=== PATIENT | male | born 1965 | race African-American/Black ===

== ENCOUNTER 2016-12-18 23:58 | Emergency (ER) | payer MEDICARE, OTHER ==
--- NOTE | ~2016-12-18 | EKG ---
PATIENT: BA CORTEZ UNIT #: [id number] Ventricular Rate: 68 BPM Atrial Rate: 68 BPM P-R Interval: 140 ms QRS Duration: 132 ms Q-T Interval: 444 ms QTC Calculation(Bezet): 472 ms P [place]: 54 degrees Calculated R [place]: -44 degrees Calculated T [place]: -45 degrees Diagnosis Line: Normal sinus rhythm with sinus arrhythmia Diagnosis Line: Left axis deviation Diagnosis Line: Incomplete left bundle branch block Diagnosis Line: T wave abnormality, consider anterolateral Diagnosis Line: ischemia Diagnosis Line: Abnormal ECG Diagnosis Line: When compared with ECG of 11-SEP-2014 13:09, Diagnosis Line: No significant change was found Diagnosis Line: Confirmed by TRISH BENAVIDES MD ([id number]) on 12/19/2016 Diagnosis Line: 4:56:48 AM INTERPRETING MD: KENNEDY LEMUS
--- NOTE | ~2016-12-18 | CT71 ---
[facility] [place] [facility] TEXT RESULTS PATIENT: BA CORTEZ LOCATION: [facility] : [birth year] UNIT #: [id number] AGE: [address]: Murphy Woods MD SEX: M ORDER DR: [id number] [address] [address] [id number] E MR#: [id number] Acc #: [id number] NAME: BA CORTEZ. : 1965 SEX: M STUDY DATE/TIME: 12/19/2016 0:15 UNIT: [place] ROOM: STUDY DESCRIPTION: CT Head Wo Contrast Attending Physician: Murphy Woosd Ordering Physician: Chris Zheng M.D. Primary Care Physician: Fer Garcia M.D. MEDICAL IMAGING REPORT This report is preliminary unless electronic signature is present EXAM CT head, noncontrast, 12/19/2016 HISTORY 51-year-old male in the ED complaining of severe headache beginning at about [address] examination of the head without IV contrast. FINDINGS No acute intracranial abnormality is demonstrated. Mild patchy, diffuse low-attenuation white matter changes, nonspecific but likely related to chronic microvascular disease. No evidence of intracranial hemorrhage, mass, mass effect, cerebral edema, hydrocephalus or additional abnormality. IMPRESSION 1. No acute intracranial abnormality. 2. Mild diffuse chronic changes as noted above. Dictated by... Rodney Roblero M.D. THIS IS AN ELECTRONICALLY VERIFIED REPORT Rodney Roblero M.D. at 12/19/2016 9:43 PM GUEVARA/timothy TD: 12/19/2016 12:05 JOB #: [id number] [facility] A Service of [facility] RADIOLOGY TEXT RESULTS PATIENT: BA CORTEZ LOCATION: [facility] : 69 UNIT #: [id number] AGE: [address]: Murphy Woods MD SEX: M ORDER DR: MEDICAL IMAGING REPORT Page 1 of 1 COPY
--- NOTE | ~2016-12-18 | CR72 ---
[facility] A Service of [facility] & [facility] RADIOLOGY TEXT RESULTS PATIENT: BA CORTEZ LOCATION: [facility] : 69 UNIT #: [id number] AGE: [address]: Murphy Woods MD SEX: M ORDER DR: [id number] [facility] [address] [place], [place] [address] [id number] E MR#: [id number] Acc #: [id number] NAME: BA CORTEZ. : 1965 SEX: M STUDY DATE/TIME: 12/19/2016 4:23 UNIT: [facility] ROOM: STUDY DESCRIPTION: CR Chest Single View Portable Attending Physician: Rogelio Woods M.D. Ordering Physician: Rogelio Woods M.D. Primary Care Physician: Fer Garcia M.D. MEDICAL IMAGING REPORT This report is preliminary unless electronic signature is present EXAM AP portable chest, 12/19/2016 HISTORY 51-year-old male in the ED complaining of new onset chest pain tonight about 4 or 5 hours prior to arrival. Headache, blurred vision. FINDINGS Heart size and pulmonary vascularity are normal. The lungs are expanded and clear. No visible pulmonary infiltrate or pleural effusion. No change since 09/11/2014. IMPRESSION Negative chest. Dictated by... Rodney Roblero M.D. THIS IS AN ELECTRONICALLY VERIFIED REPORT Rodney Roblero M.D. at 12/19/2016 9:43 PM Herminio TD: 12/19/2016 12:59 JOB #: [id number] MEDICAL IMAGING REPORT Page 1 of 1 COPY
[~2016-12-18 23:58] MED LIST: ALDACTAZIDE PO; ASPIRIN81 M1 PO; ASPIRIN81 MG PO; BENICAR20 MG PO; BYSTOLIC5 MG PO; GLIPIZIDE10 MG PO; HYDROCHLOROTHIA25 MG PO; IBUPROFEN800 MG PO; K-DUR20 ME1 PO; LIPITOR40 MG PO; LISINOPRIL PO; LORTAB 101 TAB 10/5 PO; METFORMIN HCL500 M1 PO; NEXIUM PO; NORVASC10 MG PO; ONGLYZA5 MG PO; PLAVIX PO; POTASSIUM CHLO10 MEQ PO; WELLBUTRIN SR150 MG PO; XANAX1 MG PO; ZESTRIL40 MG PO
[2016-12-19 01:20] LABS: POC - CKMB 1.4 ng/mL (0.0-7.9); POC - TROPONIN <0.05 ng/mL (<=0.05)
[2016-12-19 01:29] LABS: BASOPHIL% 0.2 % (0-2.5); EOSINOPHIL# 0.2 X10e3 (0-0.7); EOSINOPHIL% 1.8 % (0.0-7.0); HEMATOCRIT 40.4 % (38.0-50.0); LYMPHOCYTE# 3.2 X10e3 (1.0-3.5); LYMPHOCYTE% 27.6 % (17.0-45.0); MEAN CELL VOLUME 94.3 FL (83-96); MEAN CORPUSCULAR HEMOGLOBIN 30.4 PG (28-34); MEAN CORPUSCULAR HGB CONC 32.2 g/dL (30-36); MEAN PLATELET VOLUME 8.7 FL (6.5-11.5); MONOCYTE% 8.7 % (3.0-12.0); NEUTROPHIL% 61.7 % (40-75); PLATELET COUNT 307 X10e3 (140-420); RED BLOOD COUNT 4.28 X10e (3.90-5.60); RED CELL DISTRIBUTION WIDTH 14.2 % (11.0-15.5); WHITE BLOOD COUNT 11.4 X10e3 (4.0-10.5)
[2016-12-19 01:31] LABS: DIFF IND NO
[2016-12-19 02:46] LABS: POC - CKMB 1.1 ng/mL (0.0-7.9); POC - TROPONIN <0.05 ng/mL (<=0.05)
[2016-12-19 04:20] LABS: BLOOD UREA NITROGEN 14 mg/dL (9-23); CALCIUM SERUM 8.7 mg/dL (8.4-10.2); CARBON DIOXIDE 32 mmol/L (22-31); CHLORIDE 97 mmol/L (100-111); CREATININE SERUM 0.8 mg/dL (0.6-1.4); GLOM FILT RATE Estimated ABOVE60 mL/min (>60); GLUCOSE FASTING 259 mg/dL (70-110); POTASSIUM 3.4 mmol/L (3.5-5.1); SODIUM 137 mmol/L (135-145)
== END 2016-12-19 04:38 | disposition home or self-care (01) ==
LOC: CED 23:58
PROVIDERS: Emergency Medicine
DX: R51 Headache (principal); R07.89 Other chest pain; I10 Essential (primary) hypertension; Z90.49 Acquired absence of other specified parts of digestive tract
CPT/HCPCS: 36415; 70450; 71010; 80048; 82553; 84484; 85025; 93005; 99284

== ENCOUNTER 2017-02-27 11:41 | Observation (INO) | payer MEDICARE, OTHER ==
--- NOTE | ~2017-02-27 | ST ---
Unit #: [id number] #: [id number] Patient: BA CORTEZ [id number] [address] [address] [id number] I MR#: [id number] NAME: BA CORTEZ. : 1965 SEX: M STUDY DATE/TIME: UNIT: [facility] ROOM: 566 STUDY DESCRIPTION: Lexiscan stress test Attending Physician: Luke Ferguson M.D. Primary Care Physician: Fer Garcia M.D. CARDIOLOGY REPORT PROCEDURE PERFORMED Lexiscan Cardiolite stress test. NOTE: Had to change to Lexiscan due to the patient's blood pressure being elevated at baseline at 170/110 mmHg. REPORT Baseline EKG - Normal sinus rhythm with ventricular rate 68 beats per minute, left bundle branch block, poor R wave progression, T wave inversion in inferolateral leads. Lexiscan is a 4-minute test with Lexiscan being injected within the first minute, followed by Cardiolite. FINDINGS 1. EKG during the test was equivocal to baseline with occasional premature ventricular complexes. 2. The patient had no complaints of chest pain, palpitations or dizziness. Had increased shortness of breath and fatigue, which resolved in recovery phase. 3. Maximum heart rate response was 91 beats per minute with a maximum blood pressure response of 180/116 mmHg. 4. It was noted at the end of the recovery phase, the patient's blood pressure was 170/100 mmHg. 5. Cardiolite was injected after Lexiscan within the first minute of the test. Radionuclide tests pending. Please correlate with nuclear images. Dictated by... Kaylyn Zarate A.P.R.N. for Brenda Alexandra/db TD: 02/28/2017 13:14 JOB #: [id number] Unit #: [id number] #: [id number] Patient: BA CORTEZ CARDIOLOGY REPORT Page 1 of 1 X Kaylyn Zarate APRN CARDIOLOGY REPORT
--- NOTE | ~2017-02-27 | BMI ---
[facility] Nutrition Therapy DATE: 02/28/17 Patient: BA CORTEZ Physician: MAGDALENA Address: [address] [place] [address] Room/Bed: [address] [place] [address], Zip: [place] [address] Admit Date: 02/27/17 Date of : [birth year] Height: 5 11 Weight: 365 165.6 HIGH BMI NOTE: DX: 51 Y.O. MALE ADMITTED FOR LEFT ARM TINGLING AND CHEST PAIN ANTHROPOMETRICS: 5'11", WT: 365# (166 KG), BMI: 50.9 DIET: NPO RECOMMENDATIONS: 1. ONCE MEDICALLY FEASIBLE, ADVANCE DIET INDICATED TO CC+HH TO PROMOTE GRADUAL WEIGHT LOSS TOWARDS HEALTHY BMI (19.0-25.0) OR +/-10%IBW RD WILL F/U PER PROTOCOL Respectfully, RON DALEY MS, RD, LD [employer] and Nutrition[facility] cc: client file
--- NOTE | ~2017-02-27 | EKG ---
PATIENT: BA CORTEZ UNIT #: [id number] Ventricular Rate: 66 BPM Atrial Rate: 66 BPM P-R Interval: 144 ms QRS Duration: 132 ms Q-T Interval: 448 ms QTC Calculation(Bezet): 469 ms P [place]: 61 degrees Calculated R [place]: -36 degrees Calculated T [place]: -112 degrees Diagnosis Line: Normal sinus rhythm Diagnosis Line: Left axis deviation Diagnosis Line: Left bundle branch block Diagnosis Line: Abnormal ECG Diagnosis Line: When compared with ECG of 28-FEB-2017 05:44, Diagnosis Line: (unconfirmed) Diagnosis Line: No significant change was found Diagnosis Line: Confirmed by DL SARAH MD ([id number]) on Diagnosis Line: 03/03/2017 9:50:23 AM INTERPRETING : BERNARDO
--- NOTE | ~2017-02-27 | TH ---
Unit #: [id number] #: [id number] Patient: BA CORTEZ [id number] [address] [address] [id number] I MR#: [id number] NAME: BA CORTEZ. : 1965 SEX: M STUDY DATE/TIME: 03/01/2017 UNIT: [facility] ROOM: 566 STUDY DESCRIPTION: Cardiolite imaging. Attending Physician: Luke Ferguson M.D. Primary Care Physician: Fer Garcia M.D. CARDIOLOGY REPORT EXAM Two-day stress nuclear study. INDICATION Dyspnea. SUMMARY The patient tried to exercise on a Bakari protocol, but was given Lexiscan. Heart rate increased from 68 to 89, blood pressure decreased from 170/110 to 154/108. The rest and stress ECG showed incomplete left bundle branch block, with secondary ST changes. There was left axis deviation. There is T wave inversion at rest and stress in V5 and V6, and frequent PVCs. There was no significant change with stress. Technetium 99m Cardiolite 29.5 mCi was given with stress. Appropriate views were obtained. FINDINGS The study is adequate. There is severe left ventricular enlargement 272 ml, with moderate generalized hypokinesis. There is diaphragmatic artifact, intestinal artifact, and apical thinning, due to chest wall attenuation artifact. Quantitatively the ejection fraction is 34%. Qualitatively the ejection fraction appears to be close to 20%. Would consider echo followup if clinically appropriate. Perfusion images show apical thinning, diaphragmatic artifact, intestinal artifact, and chest wall attenuation artifact. Otherwise there is normal perfusion with stress. IMPRESSION 1. Normal perfusion stress nuclear study. 2. Resting not done. The patient's perfusion is normal with stress. 3. Very significant left ventricular enlargement. 4. Very significant left ventricular dysfunction. Dictated by... Kane Trinh M.D. SOFI/nita TD: 03/01/2017 15:46 JOB #: [id number] Unit #: [id number] #: [id number] Patient: BA CORTEZ CARDIOLOGY REPORT Page 1 of 1 X Kane Trinh MD CARDIOLOGY REPORT
--- NOTE | ~2017-02-27 | ST ---
Unit #: [id number] #: [id number] Patient: BA CORTEZ [id number] [address] [address] [id number] I MR#: [id number] NAME: BA CORTEZ : 1965 SEX: M STUDY DATE/TIME: 03/01/2017 UNIT: [facility] ROOM: 566 STUDY DESCRIPTION: Cardiac stress test Attending Physician: Luke Ferguson M.D. Primary Care Physician: Fer Garcia M.D. CARDIOLOGY REPORT EXAM Cardiac stress test. Results included in Cardiolite imaging report. Dictated by... Kane Trinh M.D. PJR/gz TD: 03/01/2017 15:58 JOB #: [id number] CARDIOLOGY REPORT Page 1 of 1 X Kane Trinh MD CARDIOLOGY REPORT
--- NOTE | ~2017-02-27 | EKG ---
PATIENT: BA CORTEZ UNIT #: [id number] Ventricular Rate: 65 BPM Atrial Rate: 65 BPM P-R Interval: 140 ms QRS Duration: 134 ms Q-T Interval: 456 ms QTC Calculation(Bezet): 474 ms P [place]: 63 degrees Calculated R [place]: -55 degrees Calculated T [place]: -54 degrees Diagnosis Line: Normal sinus rhythm with sinus arrhythmia Diagnosis Line: Left bundle branch block Diagnosis Line: Abnormal ECG Diagnosis Line: When compared with ECG of 27-FEB-2017 11:41, Diagnosis Line: Inverted T waves have replaced nonspecific T wave Diagnosis Line: abnormality in Anterolateral leads Diagnosis Line: Confirmed by DL SARAH MD ([id number]) on Diagnosis Line: 03/03/2017 9:45:53 AM INTERPRETING MD: BERNARDO
--- NOTE | ~2017-02-27 | EKG ---
PATIENT: BA CORTEZ UNIT #: [id number] Ventricular Rate: 73 BPM Atrial Rate: 73 BPM P-R Interval: 142 ms QRS Duration: 130 ms Q-T Interval: 402 ms QTC Calculation(Bezet): 442 ms P [place]: 53 degrees Calculated R [place]: -60 degrees Calculated T [place]: 43 degrees Diagnosis Line: Normal sinus rhythm with sinus arrhythmia Diagnosis Line: Left bundle branch block Diagnosis Line: Abnormal ECG Diagnosis Line: When compared with ECG of 18-DEC-2016 19:57, Diagnosis Line: Nonspecific T wave abnormality has replaced Diagnosis Line: inverted T waves in Inferior leads Diagnosis Line: T wave inversion no longer evident in Anterior Diagnosis Line: leads Diagnosis Line: Confirmed by GINGER CHENG MD ([id number]) on Diagnosis Line: 02/27/2017 3:51:05 PM INTERPRETING MD: SKYLAR LEMUS
--- NOTE | ~2017-02-27 | HP ---
Unit #: [id number] #: [id number] Patient: BA CORTEZ [id number] [facility] [address] [place], [place] [address] [id number] I MR#: [id number] NAME: BA CORTEZ. ROOM: 566 Age: 51 Sex: M Admission Date: 02/27/2017 : 1965 Attending Physician: Luke Ferguson M.D. Primary Care Physician: Fer Garcia M.D. HISTORY AND PHYSICAL REASON FOR ADMISSION Atypical chest pain and uncontrolled hypertension. HISTORY OF PRESENT ILLNESS The patient is a 51-year-old male with a history of hypertension, hyperlipidemia, diabetes, incomplete left bundle on previous EKGs, obesity gastroesophageal reflux disease, cardiac catheterization in 2012 with luminal irregularities. The patient presented to the [facility] emergency department with complaint of chest pain and numbness and tingling to his left arm and bilateral lower extremities. The patient states that the left arm and bilateral lower extremities began tingling first and then subsequently he began with chest pain to the left chest that was stabbing in nature. The patient denies chest pressure, nausea, vomiting, cough, fevers, chills, palpitations, lightheadedness or syncope. The patient's initial troponins were negative at less than 0.05 and less than 0.05. The patient had an echo in 2012 that showed moderately dilated left ventricle with an ejection fraction of 61% and mild TR. The patient has never had a stress test that he can recall. We will be admitting the patient for further workup and rule out of coronary disease to cause chest pain. Will also plan to control the patient's blood pressure, as his presenting blood pressure was 189/102. PAST MEDICAL HISTORY 1. Hypertension. 2. Hyperlipidemia. 3. Diabetes. 4. Incomplete left bundle. 5. Obesity. 6. Gastroesophageal reflux disease. 7. Cardiac catheterization in 2012 with luminal irregularities. 8. Echo in 2012 moderately dilated left ventricle with an ejection fraction of 61% and mild TR. ALLERGIES No known drug allergies. HOME MEDICATIONS 1. Bystolic 20 mg daily. 2. HCTZ 25 mg p.o. daily. 3. Lipitor 20 mg p.o. daily. 4. Bupropion 100 mg p.o. daily. 5. Hydralazine 25 mg q.i.d. 6. Glipizide 10 mg daily. Unit #: [id number] #: [id number] Patient: BA CORTEZ 7. Benicar 40 mg daily. 8. Metformin 1000 mg 1.5 tablets in the morning and 1 at night. 9. Protonix 40 mg daily. 10. Plavix 75 mg daily. 11. Klor-Con 20 mEq b.i.d. 12. Gabapentin 200 mg b.i.d. REVIEW OF SYSTEMS See history of present illness. PHYSICAL EXAMINATION GENERAL: This is a 51-year-old male who is alert and oriented times 3, in no apparent distress. VITALS: Blood pressure 189/102, respiratory rate 16, pulse 80, temperature 96.3, oxygen 97% on room air. HEENT: Pupils equal, round and reactive. Oral mucosa is moist. NECK: No jugular venous distension. No thyromegaly. No lymphadenopathy. No carotid bruits. LUNGS: Clear. HEART: S1 and S2. No S3 or S4. No clicks, rubs or murmurs. ABDOMEN: Soft. Bowel sounds positive. Nontender and nondistended. EXTREMITIES: No swelling. NEUROLOGIC: No neurologic deficits noted. DIAGNOSTIC STUDIES LABORATORY: White blood cell count 9, hemoglobin 13, hematocrit 40.3, platelets 309, troponin less than 0.5 and less than 0.05. Sodium 139, potassium 3.8, chloride 101, CO2 29, glucose 217, BUN 19, creatinine 0.9. CARDIOVASCULAR: EKG showed normal sinus rhythm with a left bundle branch block. ASSESSMENT 1. Atypical chest pain. 2. Hypertension, poorly controlled. 3. Hyperlipidemia. 4. Diabetes. 5. Old incomplete left bundle. PLAN Will give the patient a diet and make n.p.o. after midnight with plan for a Cardiolite treadmill stress test in the morning. Will start the patient on aspirin 81 mg p.o. daily. Home medication reconciliation was not completed at the time of admission. Will adjust blood pressure medication once med reconciliation is complete. Will trend troponins and the patient will then plan for cardiac catheterization in the morning. Will check an EKG in the morning as well as lipid panel, A1c and BMP. Will check a two-dimensional echo to evaluate left ventricular function and valves for any abnormalities. Dr. Marty to see the patient and review the chart. Further recommendations pending his review. Dictated by Shanon Reed APRN for Brenda Alexandra Unit #: [id number] #: [id number] Patient: BA CORTEZ TD: 03/01/2017 11:26 JOB #: [id number] HISTORY AND PHYSICAL Page 1 of 1 X X HISTORY AND PHYSICAL
--- NOTE | ~2017-02-27 | CR72 ---
[facility] A Service of [facility] & [facility] RADIOLOGY TEXT RESULTS PATIENT: BA CORTEZ LOCATION: [facility] : [birth year] UNIT #: [id number] AGE: [address]: Gadiel Richardson MD SEX: M ORDER DR: [id number] [facility] [address] [place], [place] [address] [id number] E MR#: [id number] Acc #: [id number] NAME: BA CORTEZ. : 1965 SEX: M STUDY DATE/TIME: 02/27/2017 12:51 UNIT: [facility] ROOM: STUDY DESCRIPTION: CR Chest Single View Portable Attending Physician: Gadiel Richardson M.D. Ordering Physician: Gadiel Richardson M.D. Primary Care Physician: Fer Garcia M.D. MEDICAL IMAGING REPORT This report is preliminary unless electronic signature is present EXAM Portable chest INDICTIONS Chest pain since the earlier today with left arm numbness. COMPARISON study is 12/19/2016. FINDINGS A portal view of the chest was obtained. The heart size and vascularity are normal. The lungs are clear. The bones are unremarkable. IMPRESSION No active disease. Dictated by... Thierno Anderson M.D. THIS IS AN ELECTRONICALLY VERIFIED REPORT Thierno Anderson M.D. at 02/27/2017 3:55 PM CAROLEE/slime TD: 02/27/2017 15:24 JOB #: [id number] MEDICAL IMAGING REPORT Page 1 of 1 COPY
[2017-02-27 12:16] LABS: BASOPHIL% 0.5 % (0-2.5); EOSINOPHIL# 0.2 X10e3 (0-0.7); EOSINOPHIL% 2.4 % (0.0-7.0); HEMATOCRIT 40.3 % (38.0-50.0); HEMOGLOBIN 13.1 gm/dL (13.0-16.0); LYMPHOCYTE# 2.1 X10e3 (1.0-3.5); LYMPHOCYTE% 23.7 % (17.0-45.0); MEAN CELL VOLUME 93.6 FL (83-96); MEAN CORPUSCULAR HEMOGLOBIN 30.5 PG (28-34); MEAN CORPUSCULAR HGB CONC 32.6 g/dL (30-36); MEAN PLATELET VOLUME 8.9 FL (6.5-11.5); MONOCYTE# 0.7 X10e3 (0-1.0); MONOCYTE% 8.3 % (3.0-12.0); NEUTROPHIL# 5.9 X10e3 (1.5-7.1); NEUTROPHIL% 65.1 % (40-75); PLATELET COUNT 309 X10e3 (140-420); RED BLOOD COUNT 4.31 X10e (3.90-5.60); RED CELL DISTRIBUTION WIDTH 13.8 % (11.0-15.5)
[2017-02-27 12:18] LABS: DIFF IND NO
[2017-02-27 12:20] LABS: POC - CKMB <1.0 ng/mL (0.0-7.9); POC - TROPONIN <0.05 ng/mL (<=0.05)
[2017-02-27 12:39] LABS: ALBUMIN SERUM 3.8 g/dL (3.5-5.0); BILIRUBIN, DIRECT 0.1 mg/dL (0.0-0.2); BILIRUBIN,INDIRECT 0.2 mg/dL (0.0-0.9); BILIRUBIN,TOTAL 0.3 mg/dL (0.2-2.0); BUN/CREATININE RATIO 21.11; CALCIUM SERUM 8.9 mg/dL (8.4-10.2); CREATININE SERUM 0.9 mg/dL (0.6-1.4); GLOM FILT RATE Estimated 115.8 mL/min (>60); POTASSIUM 3.8 mmol/L (3.5-5.1); PROTEIN TOTAL SERUM 7.3 g/dL (6.0-8.3)
[2017-02-27 13:50] LABS: POC - CKMB <1.0 ng/mL (0.0-7.9); POC - TROPONIN <0.05 ng/mL (<=0.05)
[2017-02-27] MEDS ORDERED: PATIENT'S PHARMACY (14:56)
[2017-02-27] MEDS ORDERED: DICLOFENAC SOD100 GM EXT (14:56)
[2017-02-27] MEDS ORDERED: HYDROCHLOROTHIA25 MG PO (14:57)
[2017-02-27] MEDS ORDERED: BYSTOLIC20 MG PO (14:57)
[2017-02-27] MEDS ORDERED: LIPITOR20 MG PO ×2 (14:57→15:02)
[2017-02-27] MEDS ORDERED: WELLBUTRIN PO (14:57)
[2017-02-27] MEDS ORDERED: HYDRALAZINE HCL25 MG PO (14:58)
[2017-02-27] MEDS ORDERED: GLIPIZIDE10 MG PO (14:58)
[2017-02-27] MEDS ORDERED: BENICAR PO (14:58)
[2017-02-27] MEDS ORDERED: LEVEMIR FL100 UNIT/1 SUBQ (14:59)
[2017-02-27] MEDS ORDERED: KCL PO (14:59)
[2017-02-27] MEDS ORDERED: METFORMIN HCL1000 M1 PO (14:59)
[2017-02-27] MEDS ORDERED: PROTONIX40 M1 PO (14:59)
[2017-02-27] MEDS ORDERED: CLOPIDOGREL75 MG PO (14:59)
[2017-02-27] MEDS ORDERED: NEURONTIN PO (14:59)
[2017-02-27 15:59] LABS: %MB 1.4 % (0.0-4.0); MB 1.9 ng/ml
[2017-02-27 21:13] LABS: %MB 1.4 % (0.0-4.0); MB 1.9 ng/ml
[2017-02-28 06:22] LABS: BUN/CREATININE RATIO 16.25; CALCIUM SERUM 9.1 mg/dL (8.4-10.2); CREATININE SERUM 0.8 mg/dL (0.6-1.4); GLOM FILT RATE Estimated 121.6 mL/min (>60); MAGNESIUM 1.6 mg/dL (1.6-3.0); POTASSIUM 3.8 mmol/L (3.5-5.1)
[2017-03-01 05:44] LABS: BASOPHIL% 0.3 % (0-2.5); EOSINOPHIL# 0.2 X10e3 (0-0.7); EOSINOPHIL% 2.8 % (0.0-7.0); HEMOGLOBIN 13.1 gm/dL (13.0-16.0); LYMPHOCYTE# 1.8 X10e3 (1.0-3.5); LYMPHOCYTE% 20.6 % (17.0-45.0); MEAN CELL VOLUME 92.7 FL (83-96); MEAN CORPUSCULAR HEMOGLOBIN 31.1 PG (28-34); MEAN CORPUSCULAR HGB CONC 33.6 g/dL (30-36); MEAN PLATELET VOLUME 8.4 FL (6.5-11.5); MONOCYTE# 0.8 X10e3 (0-1.0); MONOCYTE% 8.9 % (3.0-12.0); NEUTROPHIL# 5.9 X10e3 (1.5-7.1); NEUTROPHIL% 67.4 % (40-75); PLATELET COUNT 292 X10e3 (140-420); RED BLOOD COUNT 4.21 X10e (3.90-5.60); RED CELL DISTRIBUTION WIDTH 14.1 % (11.0-15.5); WHITE BLOOD COUNT 8.8 X10e3 (4.0-10.5)
[2017-03-01 05:46] LABS: DIFF IND NO
[2017-03-01 06:10] LABS: INR 0.9; PARTIAL THROMBOPLASTIN TIME 28.4 SECONDS (23.5-31.3); PROTHROMBIN TIME (PATIENT) 9.8 SECONDS (9.6-11.5)
[2017-03-01 06:56] LABS: BUN/CREATININE RATIO 15.55; CALCIUM SERUM 8.8 mg/dL (8.4-10.2); CREATININE SERUM 0.9 mg/dL (0.6-1.4); GLOM FILT RATE Estimated 115.8 mL/min (>60); MAGNESIUM 1.9 mg/dL (1.6-3.0); POTASSIUM 3.6 mmol/L (3.5-5.1)
[2017-03-01] MEDS ORDERED: COREG12.5 MG PO (19:54)
[2017-03-01] MEDS ORDERED: HYDRALAZINE HC100 MG PO (19:56)
[2017-03-01] MEDS ORDERED: NORVASC10 MG PO (19:57)
[2017-03-01] MEDS ORDERED: TYL325 PO (19:58)
[2017-03-01] MEDS ORDERED: BAYER CHEWABLE81 MG PO (19:59)
== END 2017-03-01 20:46 | disposition home or self-care (01) ==
LOC: CED 11:41 → CEDOF 14:37 → CED 16:50 → CEDOF 16:50 → C5C 17:57 → CEDOF 17:57 → C5C 03-01 20:46
PROVIDERS: Emergency Medicine; Internal Medicine Cardiovascular Disease
DX: I25.10 Atherosclerotic heart disease of native coronary artery without angina pectoris (principal); I42.8 Other cardiomyopathies; I11.0 Hypertensive heart disease with heart failure; I50.9 Heart failure, unspecified; R07.89 Other chest pain; I10 Essential (primary) hypertension; E11.9 Type 2 diabetes mellitus without complications; I44.7 Left bundle-branch block, unspecified; E66.9 Obesity, unspecified; E78.5 Hyperlipidemia, unspecified; I07.1 Rheumatic tricuspid insufficiency; K21.9 Gastro-esophageal reflux disease without esophagitis; Z79.84 Long term (current) use of oral hypoglycemic drugs; Z79.02 Long term (current) use of antithrombotics/antiplatelets
CPT/HCPCS: 36415; 71010; 78451; 80048; 80061; 80076; 82550; 82553; 82947; 83036; 83735; 84484; 85025; 85347; 85610; 85730; 93005; 93017; 94760; 99285; A9500; C1769; C1887; C1894; C8929; G0378; J0153; J1200; J1644; J1815; J2250; J2785; J3010; J3475; Q9957